=== PATIENT | male | born 1950 | race Hispanic/Latino ===

== ENCOUNTER 2017-05-31 00:45 | Inpatient (IN) | payer MEDICARE ==
[2017-05-31 01:39] LABS: Anion Gap 16 mmol/L; BUN/Creatinine Ratio 18.75; Blood Urea Nitrogen 15 mg/dL (9-20); Calcium 9.3 mg/dL (8.4-10.2); Carbon Dioxide 24 mmol/L (22-30); Chloride 100.9 mmol/L (98-107); Glucose 96 mg/dL (75-100); Potassium 4.1 mmol/L (3.6-5.0); Sodium 137 mmol/L (137-145)
[2017-05-31 01:44] LABS: Basophils % (Auto) 1.1 % (0.0-1.8); Eosinophils % (Auto) 2.2 % (0.0-4.3); Hematocrit 38.6 % (35.5-45.6); Hemoglobin 13.4 gm/dl (11.8-15.2); Mean Corpuscular HGB Conc 35 % (32-34); Mean Corpuscular Hemoglobin 31 pg (28-32); Mean Corpuscular Volume 89 fl (84-94); Platelet Count 241 K/mm3 (140-440); Red Blood Count 4.36 M/mm3 (3.65-5.03); Red Cell Distribution Width 13.9 % (13.2-15.2); White Blood Count 8.4 K/mm3 (4.5-11.0)
[2017-05-31 02:17] LABS: INR 1.08 (0.87-1.13)
[2017-05-31 02:18] LABS: Partial Thromboplastin Time 35.5 Sec. (24.2-36.6)
[2017-05-31 04:32] LABS: C-Reactive Protein 1.3 mg/dL (0.00-1.30)
--- NOTE | 2017-05-31 06:23 | Emergency Department Report ---
ED Chest Pain HPI - General Chief Complaint: Chest Pain Stated Complaint: CHEST PAIN Time Seen by Provider: 05/31/17 06:19 Source: patient, EMS Mode of arrival: Ambulatory Limitations: No Limitations - History of Present Illness Initial Comments: Patient was transported to this facility via EMS for evaluation of chest pain. He states that 45 minutes prior to arrival he felt like his back and chest were being squeezed by a vice. He had some minimal nausea but did not vomit. He had some vague shortness breath does not at the time of my encounter. He denied pleuritic pain cough or ongoing dyspnea. Patient states he's had 2 cardiac catheterizations in his life. The last one was approximately 8 years ago. He states he had a I presume cardiac see she in [facility] with 2 weeks ago which was negative. MD Complaint: chest pain -: Gradual Onset: during rest Pain Location: substernal Pain Radiation: back Severity: moderate Severity scale (0 -10): 0 Quality: heaviness Consistency: intermittent Improves With: nothing Worsens With: nothing re: nausea, vomting Other Symptoms: denies: cough, fever, syncope Treatments Prior to Arrival: none - Related Data Home Medications Medication Instructions Recorded Confirmed Last Taken Diclofenac Dr [Voltaren Dr] 75 mg PO BID 05/31/17 05/31/17 Unknown Hyoscyamine Sr [Hyomax SR TAB] 0.375 mg PO Q12H PRN 05/31/17 05/31/17 Unknown Ranitidine HCl [Zantac 300 MG TAB] 300 mg PO BID PRN 05/31/17 05/31/17 Unknown Sertraline [Zoloft] 100 mg PO QDAY 05/31/17 05/31/17 Unknown Verapamil HCl [Verapamil ER] 120 mg PO QDAY 05/31/17 05/31/17 Unknown Allergies Allergy/AdvReac Type Severity Reaction Status Date / Time homatropine [From Hydromet] Allergy Itching Verified 05/31/17 00:53 homatropine methylbromide Allergy Itching Verified 05/31/17 00:53 [From Hydromet] hydrocodone bitartrate Allergy Itching Verified 05/31/17 00:53 [From Hydromet] tramadol Allergy Itching Verified 05/31/17 00:53 Heart Score - HEART Score History: Moderately suspicious EKG: Non-specific Age: 45-65 Risk factors: > 3 risk factors or hx of atherosclerotic disease Troponin: < normal limit HEART Score: 5 - Critical Actions Critical Actions: 4-6 pts:12-16.6% risk of adverse cardiac event. Should be admitted ED Review of Systems ROS: Stated complaint: CHEST PAIN Other details as noted in HPI Constitutional: denies: chills, fever Eyes: denies: eye pain, eye discharge, vision change ENT: denies: ear pain, throat pain Respiratory: denies: cough, shortness of breath, wheezing Cardiovascular: denies: chest pain, palpitations Endocrine: no symptoms reported Gastrointestinal: denies: abdominal pain, nausea, diarrhea Genitourinary: denies: urgency, dysuria Musculoskeletal: denies: back pain, joint swelling, arthralgia Skin: denies: rash, lesions Neurological: denies: headache, weakness, paresthesias Psychiatric: denies: anxiety, depression Hematological/Lymphatic: denies: easy bleeding, easy bruising ED Past Medical Hx - Past Medical History Previous Medical History?: Yes Additional medical history: Esophageal Spasms. Obesity - Surgical History Past Surgical History?: Yes Additional Surgical History: Bilateral total hip replacement - Social History Smoking Status: Former Smoker Substance Use Type: None - Medications Home Medications: Home Medications Medication Instructions Recorded Confirmed Last Taken Type Diclofenac Dr [Voltaren Dr] 75 mg PO BID 05/31/17 05/31/17 Unknown History Hyoscyamine Sr [Hyomax SR TAB] 0.375 mg PO Q12H PRN 05/31/17 05/31/17 Unknown History Ranitidine HCl [Zantac 300 MG TAB] 300 mg PO BID PRN 05/31/17 05/31/17 Unknown History Sertraline [Zoloft] 100 mg PO QDAY 05/31/17 05/31/17 Unknown History Verapamil HCl [Verapamil ER] 120 mg PO QDAY 05/31/17 05/31/17 Unknown History ED Physical Exam - General Limitations: No Limitations General appearance: alert, in no apparent distress, obese - Head Head exam: Present: atraumatic, normocephalic. Absent: normal inspection - Eye Eye exam: Present: normal appearance, PERRL, EOMI. Absent: scleral icterus - ENT ENT exam: Present: normal exam, mucous membranes moist - Neck Neck exam: Present: normal inspection. Absent: tenderness, meningismus - Respiratory Respiratory exam: Present: normal lung sounds bilaterally. Absent: respiratory distress - Cardiovascular Cardiovascular Exam: Present: regular rate, normal rhythm. Absent: systolic murmur, diastolic murmur, rubs, gallop - GI/Abdominal GI/Abdominal exam: Present: soft, normal bowel sounds. Absent: distended, tenderness, guarding, rebound, rigid - Rectal Rectal exam: Present: deferred - Extremities Exam Extremities exam: Present: normal inspection - Back Exam Back exam: Present: normal inspection - Neurological Exam Neurological exam: Present: alert, oriented X3, CN II-XII intact. Absent: motor sensory deficit - Psychiatric Psychiatric exam: Present: normal affect, normal mood - Skin Skin exam: Present: warm, dry, intact, normal color. Absent: rash ED Course Vital Signs 05/31/17 05/31/17 05/31/17 00:48 04:24 04:30 Temperature 97.6 F Pulse Rate 53 L 54 L 53 L Respiratory 24 15 11 L Rate Blood Pressure 144/81 Blood Pressure 120/73 [Right] O2 Sat by Pulse 96 96 Oximetry 05/31/17 05/31/17 05/31/17 04:40 04:50 04:51 Temperature 97.7 F Pulse Rate 53 L 53 L 53 L Respiratory 16 14 16 Rate Blood Pressure 144/81 128/72 Blood Pressure 144/81 [Right] O2 Sat by Pulse 93 94 96 Oximetry 05/31/17 05/31/17 05/31/17 05:00 05:10 05:20 Temperature Pulse Rate 48 L 48 L 55 L Respiratory 15 15 11 L Rate Blood Pressure 128/72 122/74 122/66 Blood Pressure [Right] O2 Sat by Pulse 96 94 96 Oximetry 05/31/17 05/31/17 05/31/17 05:30 05:40 05:50 Temperature Pulse Rate 55 L 53 L 47 L Respiratory 9 L 13 17 Rate Blood Pressure 122/66 130/76 126/78 Blood Pressure [Right] O2 Sat by Pulse 95 94 94 Oximetry 05/31/17 05/31/17 05/31/17 06:00 06:10 06:20 Temperature Pulse Rate 47 L 47 L 48 L Respiratory 12 12 17 Rate Blood Pressure 126/78 133/80 122/66 Blood Pressure [Right] O2 Sat by Pulse 92 95 94 Oximetry 05/31/17 05/31/17 05/31/17 06:30 06:40 06:59 Temperature Pulse Rate 55 L 54 L 54 L Respiratory 11 L 11 L 15 Rate Blood Pressure 125/87 125/87 131/80 Blood Pressure [Right] O2 Sat by Pulse 99 96 Oximetry 05/31/17 05/31/17 05/31/17 07:00 07:10 07:20 Temperature Pulse Rate 54 L 52 L 51 L Respiratory 12 9 L 9 L Rate Blood Pressure 124/77 124/77 131/74 Blood Pressure [Right] O2 Sat by Pulse 95 96 Oximetry 05/31/17 05/31/17 05/31/17 07:30 07:40 07:50 Temperature Pulse Rate 50 L 48 L 48 L Respiratory 12 14 11 L Rate Blood Pressure 125/71 138/78 123/83 Blood Pressure [Right] O2 Sat by Pulse 94 93 93 Oximetry 05/31/17 05/31/17 05/31/17 08:00 08:10 08:20 Temperature Pulse Rate 49 L 47 L 49 L Respiratory 12 13 14 Rate Blood Pressure 121/58 121/58 120/68 Blood Pressure [Right] O2 Sat by Pulse 94 94 95 Oximetry 05/31/17 05/31/17 05/31/17 08:30 08:40 08:50 Temperature Pulse Rate 49 L 52 L 57 L Respiratory 13 9 L 13 Rate Blood Pressure 122/67 122/67 118/71 Blood Pressure [Right] O2 Sat by Pulse 94 94 92 Oximetry 05/31/17 05/31/17 05/31/17 09:00 09:10 09:20 Temperature Pulse Rate 52 L 58 L Respiratory 11 L 13 Rate Blood Pressure 125/65 122/67 126/70 Blood Pressure [Right] O2 Sat by Pulse 95 96 96 Oximetry 05/31/17 05/31/17 05/31/17 09:30 09:40 09:50 Temperature Pulse Rate 52 L 52 L 54 L Respiratory 10 L 11 L 13 Rate Blood Pressure 124/75 124/75 113/77 Blood Pressure [Right] O2 Sat by Pulse 97 93 95 Oximetry 05/31/17 05/31/17 05/31/17 10:00 10:10 10:20 Temperature Pulse Rate 55 L 50 L 48 L Respiratory 19 9 L 11 L Rate Blood Pressure 113/77 111/72 110/68 Blood Pressure [Right] O2 Sat by Pulse 95 97 97 Oximetry 05/31/17 05/31/17 05/31/17 10:30 10:40 10:50 Temperature Pulse Rate 49 L 54 L 51 L Respiratory 12 11 L 10 L Rate Blood Pressure 119/78 119/78 124/73 Blood Pressure [Right] O2 Sat by Pulse 98 97 98 Oximetry 05/31/17 05/31/17 05/31/17 11:00 11:10 11:20 Temperature Pulse Rate 53 L 53 L 55 L Respiratory 13 17 15 Rate Blood Pressure 125/77 125/77 128/80 Blood Pressure [Right] O2 Sat by Pulse 95 97 97 Oximetry 05/31/17 05/31/17 05/31/17 11:30 11:40 11:50 Temperature Pulse Rate Respiratory Rate Blood Pressure 128/80 128/80 127/52 Blood Pressure [Right] O2 Sat by Pulse 98 97 96 Oximetry 05/31/17 05/31/17 05/31/17 12:00 12:10 12:20 Temperature Pulse Rate 70 Respiratory 17 Rate Blood Pressure 124/61 124/61 124/61 Blood Pressure [Right] O2 Sat by Pulse 95 95 94 Oximetry 05/31/17 05/31/17 05/31/17 12:30 12:40 12:50 Temperature Pulse Rate 73 77 74 Respiratory 14 18 18 Rate Blood Pressure 113/69 113/69 111/78 Blood Pressure [Right] O2 Sat by Pulse 94 99 96 Oximetry 05/31/17 05/31/17 05/31/17 13:00 13:10 13:20 Temperature Pulse Rate 71 76 78 Respiratory 12 13 21 Rate Blood Pressure 111/78 127/62 127/62 Blood Pressure [Right] O2 Sat by Pulse 97 Oximetry 05/31/17 05/31/17 13:30 14:56 Temperature 98.2 F Pulse Rate 64 58 L Respiratory 16 16 Rate Blood Pressure 127/62 Blood Pressure 131/65 [Right] O2 Sat by Pulse 98 Oximetry - Reevaluation(s) Reevaluation #1: The patient was admitted by Dr. Barton. His chest pain had resolved. 05/31/17 15:37 ENDY score - Endy Score Age > 65: (1) Yes Aspirin use within the Past 7 Days: (1) Yes 3 or more CAD Risk Factors: (1) Yes 2 or more Angina events in past 24 hrs: (0) No Known CAD with more than 50% Stenosis: (0) No Elevated Cardiac Markers: (0) No ST Deviation Greater than 0.5mm: (0) No ENDY Score: 3 ED Medical Decision Making - Lab Data Result diagrams: 05/31/17 01:00 05/31/17 01:00 Laboratory Results - last 24 hr 05/31/17 05/31/17 05/31/17 01:00 01:00 01:00 WBC 8.4 RBC 4.36 Hgb 13.4 Hct 38.6 MCV 89 MCH 31 MCHC 35 H RDW 13.9 Plt Count 241 Lymph % (Auto) 35.1 H Baker % (Auto) 9.3 H Eos % (Auto) 2.2 Baso % (Auto) 1.1 Lymph # 3.0 Baker # 0.8 Eos # 0.2 Baso # 0.1 Seg Neutrophils % 52.3 Seg Neutrophils # 4.4 PT 13.9 INR 1.08 APTT 35.5 VBG pH Sodium 137 Potassium 4.1 Chloride 100.9 Carbon Dioxide 24 Anion Gap 16 BUN 15 Creatinine 0.8 Estimated GFR > 60 BUN/Creatinine Ratio 18.75 Glucose 96 Lactic Acid Calcium 9.3 Magnesium Total Creatine Kinase Troponin T < 0.010 C-Reactive Protein NT-Pro-B Natriuret Pep 05/31/17 05/31/17 05/31/17 01:00 01:00 01:05 WBC RBC Hgb Hct MCV MCH MCHC RDW Plt Count Lymph % (Auto) Baker % (Auto) Eos % (Auto) Baso % (Auto) Lymph # Baker # Eos # Baso # Seg Neutrophils % Seg Neutrophils # PT INR APTT VBG pH 7.400 Sodium Potassium Chloride Carbon Dioxide Anion Gap BUN Creatinine Estimated GFR BUN/Creatinine Ratio Glucose Lactic Acid 0.50 L Calcium Magnesium 2.00 Total Creatine Kinase 107 Troponin T C-Reactive Protein 1.30 NT-Pro-B Natriuret Pep 20.58 05/31/17 04:04 WBC RBC Hgb Hct MCV MCH MCHC RDW Plt Count Lymph % (Auto) Baker % (Auto) Eos % (Auto) Baso % (Auto) Lymph # Baker # Eos # Baso # Seg Neutrophils % Seg Neutrophils # PT INR APTT VBG pH Sodium Potassium Chloride Carbon Dioxide Anion Gap BUN Creatinine Estimated GFR BUN/Creatinine Ratio Glucose Lactic Acid Calcium Magnesium Total Creatine Kinase Troponin T < 0.010 C-Reactive Protein NT-Pro-B Natriuret Pep - EKG Data -: EKG Interpreted by Me EKG shows normal: sinus rhythm, axis, intervals, ST-T waves Rate: bradycardia - EKG Data Interpretation: no acute changes 05/31/17 06:22 IVCD no acute changes - Radiology Data interpreted by me: Chest x-ray shows some scattered fibrosis. No acute change Critical care attestation.: If time is entered above; I have spent that time in minutes in the direct care of this critically ill patient, excluding procedure time. ED Disposition Clinical Impression: Chest pain Qualifiers: Chest pain type: unspecified Qualified Code(s): R07.9 - Chest pain, unspecified Hypertension Qualifiers: Hypertension type: essential hypertension Qualified Code(s): I10 - Essential ( primary) hypertension Disposition: OP ADMIT IP TO THIS HOSP Is pt being admited?: Yes Does the pt Need Aspirin: Yes Condition: Stable Time of Disposition: 10:00
--- NOTE | 2017-05-31 09:05 | XRay Report ---
Chest 2 views: History: Shortness of breath. Chest pain. Findings: Cardiomegaly. Trachea is midline. No consolidation, pneumothorax or pleural effusion. Impression: No acute cardiopulmonary findings.
[2017-05-31] MEDS: LOVENOX SUB-Q SCH (18:15)
[2017-05-31] MEDS ORDERED: DILAUDID IV PRN ×2 (18:17→20:53)
--- NOTE | 2017-05-31 19:13 | Admit Criteria Form ---
Admission Criteria Documentation: CARDIOLOGY GRG Clinical Indications for Admission to Inpatient Care ( Place 'X' for any and all applicable criteria): Hospital admission is needed for appropriate care of the patient because of ANY ONE of the following (1): [ ] I. Hemodynamic instability as indicated by ALL of the following (1)(2)(3) (4)(5) [ ]a) Vital signs or other findings not as expected for chronic patient condition or baseline [ ]b) Instability indicated by ANY ONE of the following: [ ]i) Hypotension [ ]ii) Symptomatic Tachycardia unresponsive to treatment ( e.g., analgesia, fluids, sedation as indicated) [ ]iii) Inadequate perfusion indicated by ANY ONE of the following: [ ] 1) Lactic acidosis (> 2 mmol/L) [ ] 2) New abnormal capillary refill (> 3 seconds) [ ] 3) Reduced urine output [ ] 4) New altered mental status [ ]iv) Orthostatic vital sign changes unresponsive to treatment (e.g., fluids) [ ]v) IV inotropic or vasopressor medication required to maintain adequate blood pressure or perfusion [ ] II. Severe heart failure as indicated by ANY ONE of the following(17)(18) [ ]a) Respiratory distress [ ]b) Hypotension [ ]c) Anasarca (refractory to outpatient therapy) [ ]d) Cardiac arrhythmias of immediate concern [ ]e) Myocardial ischemia [ ] III. Cardiac arrhythmias or findings of immediate concern indicated by ANY ONE of the following (19)(20): [ ] a) Heart rhythms that are inherently dangerous or unstable indicated by ANY ONE of the following (21)(22)(23): [ ] i) Resuscitated ventricular fibrillation or cardiac arrest [ ] ii) Ventricular escape rhythm [ ] iii) Sustained ventricular tachycardia (30 seconds or more of ventricular rhythm at greater than 100 beats per minute) [ ] iv) Nonsustained ventricular tachycardia and ANY ONE of the following: [ ] 1) Suspected cardiac ischemia as cause or consequence of ventricular tachycardia [ ] 2) In setting of acute myocarditis [ ] b) Unstable cardiac conduction defects indicated by ANY ONE of the following(23)(24)(25) [ ] i) Type II second-degree atrioventricular block [ ]ii) Third-degree atrioventricular block [ ]iii) New-onset left bundle branch block with suspected myocardial ischemia [ ]c) Any heart rhythm and ANY ONE of the following (21)(22)(26)(27) (28) [ ] i) Continuous long-term ECG monitoring needed (e.g., initiation of drug requiring monitoring for more than 24 hours) [ ] ii) Patient has automatic implanted cardioverter defibrillator that is repeatedly firing, malfunctioning, or in need of immediate adjustment of settings beyond the scope of ambulatory or observation care [ ]d) Heart rhythms of concern due to ANY ONE of the following: [ ] i) Hypotension [ ] ii) Respiratory distress [ ] iii) Association with other significant symptoms (e.g., bradycardia with syncope or ongoing dizziness, supraventricular tachycardia with chest pain (14)(15)(17) [ ] IV. Monitoring for cardiac contusion beyond the scope of observation care needed [A](30)(31)(32) [ ] V. Surgical or device complication (e.g., valve replacement complication , pacemaker dysfunction) (35)(41)(44)(45)(46) [ ] . Inpatient palliative care needed. [B](49) Also use Inpatient Palliative Care Criteria [ ] VII. Nonbacterial thrombotic (marantic) endocarditis (36)(43)(47)(48) [ X] VIII. Cardiology condition, symptom, or finding for which emergency and observation care has failed or are not considered appropriate. [ ] IX. Acute valvular disease requiring inpatient as indicated by ANY ONE of the following (41) [ ]a) Acute valvular regurgitation (42) [ ]b) Noninfectious valvulitis (43) [ ]c) Obstructive valve thrombosis [ ]d) Paravalvular leak [ ]e) Other significant valvular disorder remaining after emergency or observation level of care (as appropriate) [ ]X. Pericardial disease requiring inpatient treatment as indicated by ANY ONE of the following (33)(34)(35)(36)(37) [ ]a) Suspected tamponade (38)(39)(40) [ ]b) Hemopericardium [ ]c) Other significant pericardial disorder remaining after emergency or observation level of care (as appropriate) [ ] XI. Cardiac ischemia beyond scope of emergency and observation care. [ ] XII. Hypertension requiring inpatient treatment as indicated by ANY ONE of the following (6)(7)(8) [ ]a) SBP greater than 220 mm Hg or DBP greater than 120 mmHg despite treatment [ ]b) SBP greater than 140 mm Hg or DBP greater than 100 mm Hg with evidence of acute end organ damage as indicated by ANY ONE of the following [ ] i) Altered mental status [ ] ii) Acute renal failure as indicated by new onset of ANY ONE of the following (9)(10)(11)(12)(13) [ ]1) 3-fold rise in serum creatinine from baseline [ ]2) Serum creatinine greater than 4 mg/dL ( 354 micromoles/L) with acute rise greater than 0.5 mg/dL (44.2 micromoles/L) [ ]3) Reduction of more than 75% in estimated glomerular filtration rate from baseline [ ]4) Estimated glomerular filtration rate less than 35 mL/min/1.73m2 (0.59 mL/sec/1.73m2) in child up to 18 years of age [ ]5) Cessation of urine output indicated by ALL of the following [ ]A. Adequate volume status [ ]B. Inadequate urine output as indicated by ANY ONE of the following [ ]a. Urine output less than 0.3 mL/kg/hr for 24 hours [ ]b. Anuria (urine output less than 0.1 mL/kg/hr) for 12 hours [ ] iii) Aortic dissection [ ] iv) Myocardial Ischemia [ ] v) Left ventricular heart failure [ ]vi) Retinal Hemorrhage [ ]vii) Other significant finding [ ]c) Hypertension in child requiring inpatient treatment as indicated by ALL of the following(14)(15)(16) [ ] i) Outpatient treatment not effective, not available, or not appropriate [ ]ii) SBP or DBP greater than 95th percentile for age [ ]iii) Evidence of acute end organ damage as indicated by ANY ONE of the following [ ]1) Altered mental status [ ]2) Acute renal failure as indicated by new onset of ANY ONE of the following(9)(10)(11)(12)(13) [ ]A. 3-fold rise in serum creatinine from baseline [ ]B. Serum creatinine greater than 4 mg/dL (354 micromoles/L) with acute rise greater than 0.5 mg/dL (44.2 micromoles/L) [ ]C. Reduction of more than 75% in estimated glomerular filtration rate from baseline [ ]D. Estimated glomerular filtration rate less than 35 mL/min/1.73m2 (0.59 mL/sec/1.73m2) in child up to 18 years of age [ ]E. Cessation of urine output indicated by ALL of the following [ ]a. Adequate volume status [ ]b. Inadequate urine output as indicated by ANY ONE of the following [ ]i) Urine output less than 0.3 mL/kg/hr for 24 hours [ ]ii) Anuria ( urine output less than 0.1 mL/kg/hr) for 12 hours [ ]3) Severe headache [ ]4) Visual disturbance [ ]5) Retinal hemorrhage [ ]6) Other significant finding [ ]XIII. Complications of transplanted heart indicated by ANY ONE of the following(61): [ ]a) Acute graft rejection requiring inpatient management (eg, intravenous immunosuppression)(62)(63) [ ]b) Acute graft heart failure indicated by ANY ONE of the following(64): [ ]i) Hemodynamic instability [ ]ii) Cardiac arrhythmias of immediate concern [ ]iii) Pulmonary edema that is very severe (eg, mechanical ventilation needed, imminent or likely, need for 100% oxygen to keep oxygen saturation above 90%) [ ]iv) Pulmonary edema that is persistent as indicated by ALL of the following: [ ]1) New need for oxygen therapy to keep oxygen saturation above 90% (or increased FiO2 need from baseline) [ ]2) Has not improved sufficiently with emergency department or observation care IV diuretics or other heart failure treatments[E] [ ]v) Altered mental status that is severe or persistent [ ]vi) Increased creatinine (new on laboratory test) with reduction of more than 50% in estimated glomerular filtration rate from baseline [ ]vii) Progressively (ongoing) rising creatinine (known from past laboratory test) with reduction of more than 25% in estimated glomerular filtration rate from baseline [ ]viii) Acute renal failure [ ]ix) Acute peripheral ischemia (eg, examination shows pulseless, cool, mottled, or cyanotic extremity) [ ]x) Pulmonary artery catheter monitoring needed [ ]xi) Other sign or symptom of heart failure requiring inpatient treatment (ie, too severe or not responsive to outpatient and observation care treatment) [ ]c) Infection requiring inpatient management (eg, Hemodynamic instability, need for intravenous antimicrobial treatment)(66)(67)(68)(69)(70) [ ]d) Cardiac allograft vasculopathy requiring inpatient management ( eg evidence of cardiac ischemia)(71) [ ]e) Other complication of transplanted heart (eg, stroke, severe pulmonary hypertension, severe valvular dysfunction) requiring inpatient management(72) The original [facility] [employer] content created by [facility] has been revised. The portions of the content which have been revised are identified through the use of italic text or in bold, and [facility] has neither reviewed nor approved the modified material. All other unmodified content is copyright [facility] [employer]. Please see references footnoted in the original [facility] [employer] edition 2016 Admission Criteria Met: Yes
--- NOTE | 2017-05-31 19:41 | History and Physical Report ---
History of Present Illness Date of examination: 05/31/17 Date of admission: 05/31/17 10:50 Chief complaint: Chest pain since 6 am History of present illness: KNIK 66 y/o male with history of esophageal spasm Htn Cardiac cath x2 in the past about 6 years ago comes in for chest pain since 6 am.Sharp in nature.Intermittent.Radiating to the back.No palpitations.No SOB. Home Medications Medication Instructions Recorded Confirmed Last Taken Diclofenac Dr [Voltaren Dr] 75 mg PO BID 05/31/17 05/31/17 Unknown Hyoscyamine Sr [Hyomax SR TAB] 0.375 mg PO Q12H PRN 05/31/17 05/31/17 Unknown Ranitidine HCl [Zantac 300 MG TAB] 300 mg PO BID PRN 05/31/17 05/31/17 Unknown Sertraline [Zoloft] 100 mg PO QDAY 05/31/17 05/31/17 Unknown Verapamil HCl [Verapamil ER] 120 mg PO QDAY 05/31/17 05/31/17 Unknown Allergies Allergy/AdvReac Type Severity Reaction Status Date / Time homatropine [From Hydromet] Allergy Itching Verified 05/31/17 00:53 homatropine methylbromide Allergy Itching Verified 05/31/17 00:53 [From Hydromet] hydrocodone bitartrate Allergy Itching Verified 05/31/17 00:53 [From Hydromet] tramadol Allergy Itching Verified 05/31/17 00:53 Heart Score - HEART Score History: Moderately suspicious EKG: Non-specific Age: 45-65 Risk factors: > 3 risk factors or hx of atherosclerotic disease Troponin: < normal limit HEART Score: 5 - Critical Actions Critical Actions: 4-6 pts:12-16.6% risk of adverse cardiac event. Should be admitted ED Review of Systems ROS: Stated complaint: CHEST PAIN Other details as noted in HPI Constitutional: denies: chills, fever Eyes: denies: eye pain, eye discharge, vision change ENT: denies: ear pain, throat pain Respiratory: denies: cough, shortness of breath, wheezing Cardiovascular: denies: chest pain, palpitations Endocrine: no symptoms reported Gastrointestinal: denies: abdominal pain, nausea, diarrhea Genitourinary: denies: urgency, dysuria Musculoskeletal: denies: back pain, joint swelling, arthralgia Skin: denies: rash, lesions Neurological: denies: headache, weakness, paresthesias Psychiatric: denies: anxiety, depression Hematological/Lymphatic: denies: easy bleeding, easy bruising ED Past Medical Hx - Past Medical History Previous Medical History?: Yes Additional medical history: Esophageal Spasms. Obesity - Surgical History Past Surgical History?: Yes Additional Surgical History: Bilateral total hip replacement - Social History Smoking Status: Former Smoker Substance Use Type: None - Medications Home Medications: Home Medications Medication Instructions Recorded Confirmed Last Taken Type Ronald Martinez [Magdalena Martinez] 75 mg PO BID 05/31/17 05/31/17 Unknown History Hyoscyamine Sr [Hyomax SR TAB] 0.375 mg PO Q12H PRN 05/31/17 05/31/17 Unknown History Ranitidine HCl [Zantac 300 MG TAB] 300 mg PO BID PRN 05/31/17 05/31/17 Unknown History Sertraline [Zoloft] 100 mg PO QDAY 05/31/17 05/31/17 Unknown History Verapamil HCl [Verapamil ER] 120 mg PO QDAY 05/31/17 05/31/17 Unknown History Medications and Allergies Allergies Allergy/AdvReac Type Severity Reaction Status Date / Time homatropine [From Hydromet] Allergy Itching Verified 05/31/17 00:53 homatropine methylbromide Allergy Itching Verified 05/31/17 00:53 [From Hydromet] hydrocodone bitartrate Allergy Itching Verified 05/31/17 00:53 [From Hydromet] tramadol Allergy Itching Verified 05/31/17 00:53 Home Medications Medication Instructions Recorded Confirmed Last Taken Type Ronald Martinez [Magdalena Martinez] 75 mg PO BID 05/31/17 05/31/17 Unknown History Hyoscyamine Sr [Hyomax SR TAB] 0.375 mg PO Q12H PRN 05/31/17 05/31/17 Unknown History Ranitidine HCl [Zantac 300 MG TAB] 300 mg PO BID PRN 05/31/17 05/31/17 Unknown History Sertraline [Zoloft] 100 mg PO QDAY 05/31/17 05/31/17 Unknown History Verapamil HCl [Verapamil ER] 120 mg PO QDAY 05/31/17 05/31/17 Unknown History Active Meds: Active Medications Aspirin (Baby Aspirin) 162 mg PO QDAY [facility] Enoxaparin Sodium (Lovenox) 40 mg SUB-Q QDAY [facility] Last Admin: 05/31/17 18:15 Dose: 40 mg Hydromorphone HCl (Dilaudid) 0.5 mg IV Q3H PRN PRN Reason: Pain , Severe (7-10) Exam - Physical Exam Narrative exam: Lying comfortably - Constitutional Vitals: Temp Pulse Resp BP Pulse Ox 97.6 F 58 L 18 127/72 95 05/31/17 15:05 05/31/17 18:45 05/31/17 15:05 05/31/17 15:05 05/31/17 15:05 General appearance: Present: no acute distress, well-nourished - EENT Eyes: Present: PERRL ENT: hearing intact, clear oral mucosa - Neck Neck: Present: supple, normal ROM - Respiratory Respiratory effort: normal Respiratory: bilateral: CTA - Cardiovascular Heart rate: 76 Rhythm: regular Heart Sounds: Present: S1 & S2. Absent: rub, click - Extremities Extremities: no ischemia, pulses intact, pulses symmetrical, No edema Peripheral Pulses: within normal limits - Abdominal General gastrointestinal: Present: soft, non-tender, non-distended, normal bowel sounds Male genitourinary: Present: normal - Integumentary Integumentary: Present: clear, warm, dry - Musculoskeletal Musculoskeletal: gait normal, strength equal bilaterally - Psychiatric Psychiatric: appropriate mood/affect, intact judgment & insight - Neurologic Neurologic: CNII-XII intact, moves all extremities - Allied Health Allied health notes reviewed: nursing Results - Labs CBC & Chem 7: 05/31/17 01:00 05/31/17 01:00 Labs: Laboratory Last Values WBC 8.4 K/mm3 (4.5-11.0) 05/31/17 01:00 RBC 4.36 M/mm3 (3.65-5.03) 05/31/17 01:00 Hgb 13.4 gm/dl (11.8-15.2) 05/31/17 01:00 Hct 38.6 % (35.5-45.6) 05/31/17 01:00 MCV 89 fl (84-94) 05/31/17 01:00 MCH 31 pg (28-32) 05/31/17 01:00 MCHC 35 % (32-34) H 05/31/17 01:00 RDW 13.9 % (13.2-15.2) 05/31/17 01:00 Plt Count 241 K/mm3 (140-440) 05/31/17 01:00 Lymph % (Auto) 35.1 % (13.4-35.0) H 05/31/17 01:00 Haskell % (Auto) 9.3 % (0.0-7.3) H 05/31/17 01:00 Eos % (Auto) 2.2 % (0.0-4.3) 05/31/17 01:00 Baso % (Auto) 1.1 % (0.0-1.8) 05/31/17 01:00 Lymph # 3.0 K/mm3 (1.2-5.4) 05/31/17 01:00 Haskell # 0.8 K/mm3 (0.0-0.8) 05/31/17 01:00 Eos # 0.2 K/mm3 (0.0-0.4) 05/31/17 01:00 Baso # 0.1 K/mm3 (0.0-0.1) 05/31/17 01:00 Seg Neutrophils % 52.3 % (40.0-70.0) 05/31/17 01:00 Seg Neutrophils # 4.4 K/mm3 (1.8-7.7) 05/31/17 01:00 PT 13.9 Sec. (12.2-14.9) 05/31/17 01:00 INR 1.08 (0.87-1.13) 05/31/17 01:00 APTT 35.5 Sec. (24.2-36.6) 05/31/17 01:00 VBG pH 7.400 (7.320-7.420) 05/31/17 01:00 Sodium 137 mmol/L (137-145) 05/31/17 01:00 Potassium 4.1 mmol/L (3.6-5.0) 05/31/17 01:00 Chloride 100.9 mmol/L (98-107) 05/31/17 01:00 Carbon Dioxide 24 mmol/L (22-30) 05/31/17 01:00 Anion Gap 16 mmol/L 05/31/17 01:00 BUN 15 mg/dL (9-20) 05/31/17 01:00 Creatinine 0.8 mg/dL (0.8-1.5) 05/31/17 01:00 Estimated GFR > 60 ml/min 05/31/17 01:00 BUN/Creatinine Ratio 18.75 % 05/31/17 01:00 Glucose 96 mg/dL (75-100) 05/31/17 01:00 Lactic Acid 0.50 mmol/L (0.7-2.0) L 05/31/17 01:00 Calcium 9.3 mg/dL (8.4-10.2) 05/31/17 01:00 Magnesium 2.00 mg/dL (1.7-2.3) 05/31/17 01:05 Total Creatine Kinase 107 units/L (55-170) 05/31/17 01:05 Troponin T < 0.010 ng/mL (0.00-0.029) 05/31/17 07:53 C-Reactive Protein 1.30 mg/dL (0.00-1.30) 05/31/17 01:05 NT-Pro-B Natriuret Pep 20.58 pg/mL (0-900) 05/31/17 01:05 Short CBC 05/31/17 Range/Units 01:00 WBC 8.4 (4.5-11.0) K/mm3 Hgb 13.4 (11.8-15.2) gm/dl Hct 38.6 (35.5-45.6) % Plt Count 241 (140-440) K/mm3 BMP 05/31/17 01:00 Sodium 137 Potassium 4.1 Chloride 100.9 Carbon Dioxide 24 BUN 15 Creatinine 0.8 Glucose 96 Calcium 9.3 Cardiac Enzymes 05/31/17 05/31/17 05/31/17 Range/Units 01:00 01:05 04:04 Total Creatine Kinase 107 (55-170) units/L Troponin T < 0.010 < 0.010 (0.00-0.029) ng/mL 05/31/17 Range/Units 07:53 Total Creatine Kinase (55-170) units/L Troponin T < 0.010 (0.00-0.029) ng/mL - Imaging and Cardiology EKG: report reviewed (sinus rhythm, axis, intervals, Non specific ST T wave changes) Chest x-ray: report reviewed (NAF) Assessment and Plan Advance Directives: Yes (Full code) VTE prophylaxis?: Chemical Plan of care discussed with patient/family: Yes - Patient Problems (1) Acute coronary syndrome Current Visit: Yes Status: Acute Plan to address problem: Serial cardiac enzymes and Lexiscan in AM. Cardiology consult-Dr Zapata.Patient follows with Dr Willingham. DDX of Esophageal spasm costochondritis to be considered. (2) Hypertension Current Visit: Yes Status: Chronic Qualifiers: Hypertension type: essential hypertension Qualified Code(s): I10 - Essential (primary) hypertension Plan to address problem: Cont Verapamil (3) GERD (gastroesophageal reflux disease) Current Visit: Yes Status: Chronic Qualifiers: Esophagitis presence: with esophagitis Qualified Code(s): K21.0 - Gastro- esophageal reflux disease with esophagitis Plan to address problem: Cont Ranitidine Patient advised to avoid Diclofenac which he uses in the form of 75 mg po bid (4) Depression Current Visit: Yes Status: Chronic Qualifiers: Depression Type: D Major depression recurrence: recurrent Active/ Remission status: currently active Major depression episode severity: M Psychotic features: P Trimester: T Plan to address problem: Cont Zoloft 100 mg po qd (5) DVT prophylaxis Current Visit: Yes Status: Acute Plan to address problem: On Lovenox 40 mg sq qd
[2017-05-31] MEDS ORDERED: HYOMAX-SR PO PRN (20:51)
[2017-05-31] MEDS ORDERED: PEPCID PO PRN (20:51)
[2017-05-31] MEDS ORDERED: TYLENOL PO PRN (20:53)
[2017-05-31] MEDS ORDERED: AMBIEN PO PRN (20:53)
[2017-05-31] MEDS ORDERED: DULCOLAX PR PRN (20:53)
[2017-05-31] MEDS ORDERED: REGLAN IV PRN (20:53)
[2017-05-31] MEDS ORDERED: ZOFRAN IV PRN (20:53)
[2017-05-31] MEDS ORDERED: MILK OF MAGNESIA PO PRN (20:53)
[2017-05-31] MEDS ORDERED: D5/0.45NS 1,000 ML IV SCH (21:00)
[2017-05-31 23:12] LABS: Creatine Kinase MB 1.7 ng/mL (0.0-4.0)
[2017-06-01] MEDS: PEPCID IV SCH ×2 (05:40→12:42)
[2017-06-01] MEDS: ZOLOFT PO SCH ×2 (05:40→12:24)
[2017-06-01 06:06] LABS: Basophils % (Auto) 1.1 % (0.0-1.8); Eosinophils % (Auto) 2.4 % (0.0-4.3); Hematocrit 38.9 % (35.5-45.6); Hemoglobin 13.3 gm/dl (11.8-15.2); Mean Corpuscular HGB Conc 34 % (32-34); Mean Corpuscular Hemoglobin 30 pg (28-32); Mean Corpuscular Volume 86 fl (84-94); Platelet Count 218 K/mm3 (140-440); Red Blood Count 4.51 M/mm3 (3.65-5.03); Red Cell Distribution Width 13.7 % (13.2-15.2)
[2017-06-01 06:23] LABS: Alanine Aminotransferase 25 units/L (7-56); Albumin 3.8 g/dL (3.9-5); Albumin/Globulin Ratio 1.3 %; Anion Gap 23 mmol/L; BUN/Creatinine Ratio 21.42; Blood Urea Nitrogen 15 mg/dL (9-20); Carbon Dioxide 24 mmol/L (22-30); Chloride 101.4 mmol/L (98-107); Glucose 95 mg/dL (75-100); Sodium 140 mmol/L (137-145); Total Protein 6.7 g/dL (6.3-8.2)
[2017-06-01 06:44] LABS: Creatine Kinase MB 1.4 ng/mL (0.0-4.0)
[2017-06-01 07:09] LABS: Alkaline Phosphatase 74 units/L (35-129)
[2017-06-01 07:25] LABS: Potassium 8.6 mmol/L (3.6-5.0)
--- NOTE | 2017-06-01 09:40 | Consultation ---
History of Present Illness Consult date: 06/01/17 Requesting physician: GEORGETTE COYNE Consult reason: chest pain (Patient with history of HTN presented to the ER with spontaneous onset of chest pain readiating to his back. Patient reports she was working on his computer when he noticed chest pain right side of the sternum radiating to the back. Patient reports that he has history of esophageam spasm but this was pain felt different. Patient reports he has another epiosdes of pain while in the hospital. Patient reports he has had remote cardiac cath that was negaitve. He has had recent CT of the chest that was negative. Patient continues to have shortness of breath on and off. ) Past History Past Medical History: hypertension Past Surgical History: No surgical history Social history: no significant social history Family history: no significant family history Medications and Allergies Allergies Allergy/AdvReac Type Severity Reaction Status Date / Time homatropine [From Hydromet] Allergy Itching Verified 05/31/17 00:53 homatropine methylbromide Allergy Itching Verified 05/31/17 00:53 [From Hydromet] hydrocodone bitartrate Allergy Itching Verified 05/31/17 00:53 [From Hydromet] tramadol Allergy Itching Verified 05/31/17 00:53 Home Medications Medication Instructions Recorded Confirmed Last Taken Type Ronald Martinez [Magdalena Martinez] 75 mg PO BID 05/31/17 05/31/17 Unknown History Hyoscyamine Sr [Hyomax SR TAB] 0.375 mg PO Q12H PRN 05/31/17 05/31/17 Unknown History Ranitidine HCl [Zantac 300 MG TAB] 300 mg PO BID PRN 05/31/17 05/31/17 Unknown History Sertraline [Zoloft] 100 mg PO QDAY 05/31/17 05/31/17 Unknown History Verapamil HCl [Verapamil ER] 120 mg PO QDAY 05/31/17 05/31/17 Unknown History Active Meds: Active Medications Acetaminophen (Tylenol) 650 mg PO Q4H PRN PRN Reason: Pain MILD(1-3)/Fever >100.5/LEE Aspirin (Baby Aspirin) 162 mg PO QDAY [facility] Bisacodyl (Dulcolax) 10 mg OR QDAY PRN PRN Reason: Constipation unrelieved by MOM Enoxaparin Sodium (Lovenox) 40 mg SUB-Q QDAY [facility] Last Admin: 05/31/17 18:15 Dose: 40 mg Famotidine (Pepcid) 20 mg PO BID PRN PRN Reason: stomach ache Famotidine (Pepcid) 20 mg IV BID [facility] Last Admin: 06/01/17 05:40 Dose: Not Given Hydromorphone HCl (Dilaudid) 0.5 mg IV Q3H PRN PRN Reason: Pain , Severe (7-10) Hydromorphone HCl (Dilaudid) 0.5 mg IV Q3H PRN PRN Reason: Pain , Severe (7-10) Hyoscyamine (Hyomax-Sr) 0.375 mg PO Q12H PRN PRN Reason: Spasms Dextrose/Sodium Chloride (D5/0.45ns) 1,000 mls @ 75 mls/hr IV DIRECT [facility] Last Admin: 06/01/17 05:56 Dose: 75 mls/hr Magnesium Hydroxide (Milk Of Magnesia) 30 ml PO Q4H PRN PRN Reason: Constipation Metoclopramide HCl (Reglan) 10 mg IV Q6H PRN PRN Reason: Nausea And Vomiting Ondansetron HCl (Zofran) 4 mg IV Q8H PRN PRN Reason: N/V unrelieved by Reglan Sertraline HCl (Zoloft) 100 mg PO QDAY [facility] Last Admin: 06/01/17 05:40 Dose: Not Given Verapamil HCl (Calan Sr) 120 mg PO QDAY [facility] Zolpidem Tartrate (Ambien) 5 mg PO QHS PRN PRN Reason: Insomnia Review of Systems All systems: negative Physical Examination Vital Signs Temp Pulse Resp BP 97.6 F 53 L 24 120/73 05/31/17 00:48 05/31/17 00:48 05/31/17 00:48 05/31/17 00:48 Narrative exam: vitals reviewed No acute distress Moderately obese HENT- carotids no bruit CVS- S1 S2 heard no significant murmur RS- NVBS heard P/A- Soft BS heard [employer] - non focal Extremities- No edema Results 06/01/17 05:28 06/01/17 05:28 Cardiac Enzymes 05/31/17 06/01/17 06/01/17 Range/Units 21:38 05:28 05:28 AST 19 (5-40) units/L CK-MB (CK-2) 1.7 1.4 (0.0-4.0) ng/mL CBC 06/01/17 Range/Units 05:28 WBC 7.0 (4.5-11.0) K/mm3 RBC 4.51 (3.65-5.03) M/mm3 Hgb 13.3 (11.8-15.2) gm/dl Hct 38.9 (35.5-45.6) % Plt Count 218 (140-440) K/mm3 Lymph # 1.9 (1.2-5.4) K/mm3 Thomas # 0.5 (0.0-0.8) K/mm3 Eos # 0.2 (0.0-0.4) K/mm3 Baso # 0.1 (0.0-0.1) K/mm3 Comprehensive Metabolic Panel 06/01/17 Range/Units 05:28 Sodium 140 (137-145) mmol/L Potassium 8.6 H* D (3.6-5.0) mmol/L Chloride 101.4 (98-107) mmol/L Carbon Dioxide 24 (22-30) mmol/L BUN 15 (9-20) mg/dL Creatinine 0.7 L (0.8-1.5) mg/dL Glucose 95 (75-100) mg/dL Calcium 5.0 L* D (8.4-10.2) mg/dL AST 19 (5-40) units/L ALT 25 (7-56) units/L Alkaline Phosphatase 74 (35-129) units/L Total Protein 6.7 (6.3-8.2) g/dL Albumin 3.8 L (3.9-5) g/dL EKG interpretations - Telemetry EKG Rhythm: Sinus Rhythm Assessment and Plan 1. Chest pain atypical 2. Shortness of breath 3. HTN 4. Depression 5. Hyperkalemia Plan Hyperkalemia appears spurious Admission potassium was normal repeat potassium Continue rest Review recent work up Stress test tomorrow
--- NOTE | 2017-06-01 10:10 | Progress Note ---
Assessment and Plan Assessment and plan: 66 y/o male with history of esophageal spasm, for which she takes Pepcid as needed, history of negative cardiac cath about 6 years ago at the time when he had chest pain. He states that his being worked up as an outpatient recently for depression exertion and she had ambulatory saturation testing which showed a sats of 96 at rest and 96 after exercise. He notes that he does work a lot and drinks up to 20 cups of coffee a day, his at the bedside was convinced that his symptoms are due to excessive coffee drinking, and working too hard with little rest. Chest pain Cardiology input appreciated, troponins are negative, obtain stress test and echocardiogram tomorrow morning Pseudo-Hyperkalemia This was due to lab error, repeat potassium was normal Hypertension Well-controlled, continue home meds History of esophageal spasm Currently asymptomatic, nothing to do Major depression, chronic Continue home medications Obstructive sleep apnea Continue CPAP at bedtime. DVT prophylaxis Lovenox History Interval history: Chest pain has now resolved, he hasn't had an episode of chest pain since last night Hospitalist Physical - Physical exam Narrative exam: General: Patient appears well in no distress, obese HEENT: MMM, EOMI cardiac: S1-S2 heard lungs: clear to auscultation, abdomen: soft, nontender, nondistended bowel sounds positive extremities: no edema clubbing or cyanosis Skin: no rash or lesion Neuro: no focal deficit Psych: appropriate behavior and mood, cognition intact - Constitutional Vitals: Temp Pulse Resp BP Pulse Ox 97.9 F 59 L 20 117/68 95 06/01/17 04:20 06/01/17 04:20 06/01/17 04:20 06/01/17 04:20 06/01/17 04:20 General appearance: Present: no acute distress, well-nourished Results - Labs CBC & Chem 7: 06/01/17 05:28 06/01/17 13:20 Labs: Laboratory Last Values WBC 7.0 K/mm3 (4.5-11.0) 06/01/17 05:28 RBC 4.51 M/mm3 (3.65-5.03) 06/01/17 05:28 Hgb 13.3 gm/dl (11.8-15.2) 06/01/17 05:28 Hct 38.9 % (35.5-45.6) 06/01/17 05:28 MCV 86 fl (84-94) D 06/01/17 05:28 MCH 30 pg (28-32) 06/01/17 05:28 MCHC 34 % (32-34) 06/01/17 05:28 RDW 13.7 % (13.2-15.2) 06/01/17 05:28 Plt Count 218 K/mm3 (140-440) 06/01/17 05:28 Lymph % (Auto) 26.8 % (13.4-35.0) 06/01/17 05:28 Cooper % (Auto) 7.7 % (0.0-7.3) H 06/01/17 05:28 Eos % (Auto) 2.4 % (0.0-4.3) 06/01/17 05:28 Baso % (Auto) 1.1 % (0.0-1.8) 06/01/17 05:28 Lymph # 1.9 K/mm3 (1.2-5.4) 06/01/17 05:28 Cooper # 0.5 K/mm3 (0.0-0.8) 06/01/17 05:28 Eos # 0.2 K/mm3 (0.0-0.4) 06/01/17 05:28 Baso # 0.1 K/mm3 (0.0-0.1) 06/01/17 05:28 Seg Neutrophils % 62.0 % (40.0-70.0) 06/01/17 05:28 Seg Neutrophils # 4.3 K/mm3 (1.8-7.7) 06/01/17 05:28 PT 13.9 Sec. (12.2-14.9) 05/31/17 01:00 INR 1.08 (0.87-1.13) 05/31/17 01:00 APTT 35.5 Sec. (24.2-36.6) 05/31/17 01:00 VBG pH 7.400 (7.320-7.420) 05/31/17 01:00 Sodium 140 mmol/L (137-145) 06/01/17 05:28 Potassium 8.6 mmol/L (3.6-5.0) H* D 06/01/17 05:28 Chloride 101.4 mmol/L (98-107) 06/01/17 05:28 Carbon Dioxide 24 mmol/L (22-30) 06/01/17 05:28 Anion Gap 23 mmol/L 06/01/17 05:28 BUN 15 mg/dL (9-20) 06/01/17 05:28 Creatinine 0.7 mg/dL (0.8-1.5) L 06/01/17 05:28 Estimated GFR > 60 ml/min 06/01/17 05:28 BUN/Creatinine Ratio 21.42 % 06/01/17 05:28 Glucose 95 mg/dL (75-100) 06/01/17 05:28 Hemoglobin A1c 5.4 % (4-6) 05/31/17 21:38 Lactic Acid 0.50 mmol/L (0.7-2.0) L 05/31/17 01:00 Calcium 5.0 mg/dL (8.4-10.2) L* D 06/01/17 05:28 Magnesium 2.00 mg/dL (1.7-2.3) 05/31/17 01:05 Total Bilirubin 0.40 mg/dL (0.1-1.2) 06/01/17 05:28 AST 19 units/L (5-40) 06/01/17 05:28 ALT 25 units/L (7-56) 06/01/17 05:28 Alkaline Phosphatase 74 units/L (35-129) 06/01/17 05:28 Total Creatine Kinase 65 units/L (55-170) 06/01/17 05:28 CK-MB (CK-2) 1.4 ng/mL (0.0-4.0) 06/01/17 05:28 CK-MB (CK-2) Rel Index 2.1 (0-4) 06/01/17 05:28 Troponin T < 0.010 ng/mL (0.00-0.029) 06/01/17 05:28 C-Reactive Protein 1.30 mg/dL (0.00-1.30) 05/31/17 01:05 NT-Pro-B Natriuret Pep 20.58 pg/mL (0-900) 05/31/17 01:05 Total Protein 6.7 g/dL (6.3-8.2) 06/01/17 05:28 Albumin 3.8 g/dL (3.9-5) L 06/01/17 05:28 Albumin/Globulin Ratio 1.3 % 06/01/17 05:28
[2017-06-01] MEDS: LOVENOX SUB-Q SCH (12:20)
[2017-06-01] MEDS: CALAN SR PO SCH (12:20)
[2017-06-01] MEDS: BABY ASPIRIN PO SCH (12:21)
[2017-06-01] MEDS: PEPCID PO SCH ×2 (12:23→21:08)
[2017-06-01 14:22] LABS: Anion Gap 16 mmol/L; Blood Urea Nitrogen 14 mg/dL (9-20); Calcium 9.4 mg/dL (8.4-10.2); Carbon Dioxide 26 mmol/L (22-30); Chloride 102.3 mmol/L (98-107); Glucose 116 mg/dL (75-100); Potassium 4.2 mmol/L (3.6-5.0); Sodium 140 mmol/L (137-145)
--- NOTE | 2017-06-02 09:28 | Discharge Summary ---
Providers - Providers Date of Admission: 05/31/17 10:50 Attending physician: ANGELA CHUN MD 05/31/17 20:53 Consult to Physician [CONS] Routine Consulting Provider: GAIL STOCKTON Reason For Exam: Chest pain Place consult to:: Dr. Stockton Notified:: Cathie TAVAREZ Phone number called:: Was contact made?: Yes If yes, spoke with:: [employer] Time called:: 08:20 Primary care physician: WELDING OPERATOR Hospitalization Condition: Stable Hospital course: 66 y/o male with history of esophageal spasm, for which she takes Pepcid as needed, history of negative cardiac cath about 6 years ago at the time when he had chest pain. He states that his being worked up as an outpatient recently for depression exertion and she had ambulatory saturation testing which showed a sats of 96 at rest and 96 after exercise. He notes that he does work a lot and drinks up to 20 cups of coffee a day, his at the bedside was convinced that his symptoms are due to excessive coffee drinking, and working too hard with little rest. He was seen in conjunction with cardiology acute coronary syndrome was ruled out by negative troponins, had a benign EKG, he went on to have echocardiogram which was also benign, had an MPI that was negative for ischemia. He was continued on the rest of his him medications for his chronic medical conditions, he was discharged home in improved condition and he was advised to cut down on coffee. He is currently drinking 20 cups a day, he was recommended to take no more than 1-2 cups of coffee daily. He was also advised to take an enteric coated baby aspirin daily for cardiac protection. Discharge diagnoses Chest pain due to caffeine poisoning Hypertension Esophageal spasm, chronic Major depression, chronic ENE Disposition: - TO HOME OR SELFCARE Time spent for discharge: 33 minutes Core Measure Documentation - Palliative Care Palliative Care/ Comfort Measures: Not Applicable - Core Measures Any of the following diagnoses?: none Exam - Constitutional Vitals: Temp Pulse Resp BP Pulse Ox 97.8 F 50 L 20 130/73 99 06/02/17 06:32 06/02/17 06:32 06/02/17 06:32 06/02/17 06:32 06/02/17 06:32 General appearance: Present: no acute distress, well-nourished - EENT Eyes: Present: PERRL ENT: hearing intact, clear oral mucosa - Neck Neck: Present: supple, normal ROM - Respiratory Respiratory effort: normal Respiratory: bilateral: CTA - Cardiovascular Heart Sounds: Present: S1 & S2. Absent: rub, click - Extremities Extremities: pulses symmetrical, No edema Peripheral Pulses: within normal limits - Abdominal General gastrointestinal: Present: soft, non-tender, non-distended, normal bowel sounds Male genitourinary: Present: normal - Integumentary Integumentary: Present: clear, warm, dry - Musculoskeletal Musculoskeletal: gait normal, strength equal bilaterally - Psychiatric Psychiatric: appropriate mood/affect, intact judgment & insight - Neurologic Neurologic: CNII-XII intact, moves all extremities Plan Follow up with: PRIMARY CARE,MD [Primary Care Provider] - 3-5 Days Prescriptions: Aspirin EC [Aspirin Enteric Coated TAB] 81 mg PO QDAY #30 tablet. Verapamil HCl [Verapamil ER] 120 mg PO QDAY #30 [email or web address]
[2017-06-02] MEDS ORDERED: LEXISCAN IV ONE ×2 (11:56→12:07)
--- NOTE | 2017-06-02 13:11 | Progress Note ---
Assessment and Plan - Patient Problems (1) Chest pain Current Visit: Yes Status: Acute Qualifiers: Chest pain type: unspecified Ischemic chest pain type: I Qualified Code(s ): R07.9 - Chest pain, unspecified Plan to address problem: Patient is status post Persantine thallium stress test, results pending. Subjective Date of service: 06/02/17 Interval history: Patient underwent a Persantine thallium stress test today, results are pending. Objective Vital Signs Temp Pulse Pulse Resp BP BP Pulse Ox 06/02/17 09:39 97.4 F L 54 L 18 127/83 98 06/02/17 06:32 97.8 F 50 L 20 130/73 99 06/02/17 01:51 97.4 F L 59 L 20 117/56 95 06/01/17 23:50 59 L 20 117/56 95 06/01/17 22:00 18 06/01/17 21:00 98.2 F 59 L 20 127/68 96 06/01/17 16:15 97.5 F L 55 L 18 123/74 96 - Physical Examination General: Appears Well, No Apparent Distress HEENT: Positive: PERRL Neck: Positive: neck supple Cardiac: Positive: Reg Rate and Rhythm Lungs: Positive: clear to auscultation Neuro: Positive: Grossly Intact Abdomen: Positive: Soft Skin: Positive: Clear Extremities: Absent: edema - Labs and Meds Comprehensive Metabolic Panel 06/01/17 Range/Units 13:20 Sodium 140 (137-145) mmol/L Potassium 4.2 D (3.6-5.0) mmol/L Chloride 102.3 (98-107) mmol/L Carbon Dioxide 26 (22-30) mmol/L BUN 14 (9-20) mg/dL Creatinine 0.8 (0.8-1.5) mg/dL Glucose 116 H (75-100) mg/dL Calcium 9.4 D (8.4-10.2) mg/dL - Imaging and Cardiology EKG: report reviewed (sinus rhythm, axis, intervals, Non specific ST T wave changes)
--- NOTE | 2017-06-02 14:05 | Query- Chest Pain ---
Deakarina Hawk____Júnioruilisa Date: 06/02/17 Nurse Prn/CDS:____Juan Sanchez Phone#: [phone] Exercise your independent professional judgment when responding to query. Questions asked do not imply a particular answer is desired or expected. We greatly appreciate your clarification on this issue. Clinical Documentation States: 66 year old male was admitted on 05/31/17. The Discharge summary states " Hospital course: 66 y/o male with history of esophageal spasm, for which she takes Pepcid as needed, history of negative cardiac cath about 6 years ago at the time when he had chest pain. He states that his being worked up as an outpatient recently for depression exertion and she had ambulatory saturation testing which showed a sats of 96 at rest and 96 after exercise. He notes that he does work a lot and drinks up to 20 cups of coffee a day, his at the bedside was convinced that his symptoms are due to excessive coffee drinking, and working too hard with little rest. Chest pain Cardiology input appreciated, troponins are negative, obtain stress test and echocardiogram tomorrow morning " The Cardiology progress note states " (1) Chest pain Current Visit: Yes Status: Acute Qualifiers: Chest pain type: unspecified Ischemic chest pain type: I Qualified Code(s ): R07.9 - Chest pain, unspecified " Please document the etiology of Chest Pain: [ ] Myocardial Infarction [ ] Pneumonia [ ] Mediastinitis [x ] Costochondritis [ ] Pulmonary Embolism [ ] Coronary Artery Disease [ ] GERD [ ] Other: [ ] Comment/Explanation: Present on Admission: [x ] Yes (Y) [ ] Clinically undeterminable (W) [ ] No(N) Please document response in your Progress Notes and/or Discharge Summary and indicate if the condition was present on admission. KEYONAD
[2017-06-02] MEDS: LOVENOX SUB-Q SCH (14:41)
[2017-06-02] MEDS: CALAN SR PO SCH (14:41)
[2017-06-02] MEDS: ZOLOFT PO SCH (14:53)
[2017-06-02] MEDS: BABY ASPIRIN PO SCH (14:53)
[2017-06-02] MEDS: PEPCID PO SCH (14:55)
[2017-06-02 16:48] VITALS: BP 124/66
== END 2017-06-02 18:03 | disposition home or self-care (01) | DRG 206 ==
LOC: ED 00:45 → 4A 10:50
PROVIDERS: ADMIT Internal Medicine; ATTEND Internal Medicine
DX: M94.0 Chondrocostal junction syndrome [Tietze] (principal); K21.9 Gastro-esophageal reflux disease without esophagitis; F32.9 Major depressive disorder, single episode, unspecified; G47.33 Obstructive sleep apnea (adult) (pediatric); E66.9 Obesity, unspecified; Z96.643 Presence of artificial hip joint, bilateral; I10 Essential (primary) hypertension; K22.4 Dyskinesia of esophagus; E87.5 Hyperkalemia; Z87.891 Personal history of nicotine dependence; Z88.5 Allergy status to narcotic agent; Z88.8 Allergy status to other drugs, medicaments and biological substances; Z68.38 Body mass index [BMI] 38.0-38.9, adult
CPT/HCPCS: 36415; 71020; 78452; 80048; 80053; 82140; 82550; 82553; 82805; 83036; 83735; 83880; 84484; 85025; 85610; 85730; 86140; 93005; 93010; 93017; 93306; 94660; A9502; J1170; J1650; J2785

== ENCOUNTER 2017-10-21 14:25 | Outpatient (CLI) | payer MEDICARE, OTHER ==
--- NOTE | 2017-10-21 16:55 | XRay Report ---
XRAY BILATERAL HIPS AND AP PELVIS THREE VIEWS: 10/21/17 00:00:00 CLINICAL: Bilateral hip replacement. FINDINGS: Right: Status post total hip replacement with normal appearance of the prosthesis. No apparent loosening. No fracture or dislocation. Normal soft tissues. Left: Status post total hip replacement with normal appearance of the prosthesis. No apparent loosening. No fracture or dislocation. Normal soft tissues. The pelvic bones are intact. There is a benign bone island of the right iliac bone. Normal SI joints. Lower lumbar degenerative disc disease with large osteophytes. IMPRESSION: Status post bilateral total hip replacement. Lower lumbar degenerative disc disease.
--- NOTE | 2017-10-21 16:58 | XRay Report ---
XRAY LUMBAR SPINE THREE VIEWS: 10/21/17 14:25:00 CLINICAL: Back pain. FINDINGS: Grade 1 L2-3 retrolisthesis and a questionable pars defect at that level. The rest of the bodies are normal alignment. No fracture. Mild disc space narrowing at L2-3, L3-4, L4-5 and L5-S1. Large anterior osteophytes at L4-5 and smaller osteophytes at L2-3 and L34. Lateral osteophytes at all levels. Facet joint sclerosis at all levels. The pedicles are intact. Normal soft tissues. IMPRESSION: Grade 1 L2-3 retrolisthesis and a questionable pars defect at that level. Multilevel degenerative disc disease. Multilevel facet joint arthropathy.
== END 2017-10-21 14:26 | disposition home or self-care (01) ==
LOC: SPVIMAG 14:25
PROVIDERS: ATTEND Orthopaedic Surgery Sports Medicine
DX: M51.36 Other intervertebral disc degeneration, lumbar region (principal); M12.88 Other specific arthropathies, not elsewhere classified, other specified site; Z96.643 Presence of artificial hip joint, bilateral
CPT/HCPCS: 72100; 73521